=== PATIENT | female | born 1965 | race Two or more races ===

== ENCOUNTER → 2020-04-23 09:00 | Outpatient (CLI) | payer BC ==
--- NOTE | 2020-04-27 13:52 | EC ---
PATIENT:LISA YO DATE OF SERVICE: 04/23/20 SEX: F MEDICAL RECORD: [id number] DATE OF : 61 LOCATION:D[facility] AGE OF PATIENT: 54 ADMISSION DATE: 04/23/20 REFERRING PHYSICIAN: INTERPRETING PHYSICIAN: KELLEY FRIAS MD ECHOCARDIOGRAM REPORT ECHO CHARGES 4 ECHO COMPLETE Date: 04/23/20 CLINICAL DIAGNOSIS: HEART MURMUR, HX OF HTN, ANGINA, CAROTID BRUIT ECHOCARDIOGRAPHIC MEASUREMENTS (adult normal given) AC root (d.<3.7cm) 2.8 cm LV Septum d (<1.2 cm> 1.3 cm Valve Excursion 1.4 cm LV Septum (systole) 1.5 cm Left Atria (s.<4.0cm> 3.7 cm LVPW d(<1.2cm) 1.3 cm RV (d.<2.3cm) 3.2 cm LVPW (sytole) 1.9 cm LV diastole(<5.6CM) 4.3 cm MV E-F(>70mm/sec) cm LV systole 2.3 cm LVOT Diameter 1.6 cm MV exc.(>10mm) 1.2 cm Est.ejection fraction (50-75%) % DOPPLER: LVIT cm/sec A 99.0 cm/sec E 109.0 cm/sec LA cm/sec RVSP 37 mmHg LVOT 79 cm/sec AOP1/2T m/s Asc. Ao 152 cm/sec RVOT 71 cm/sec RA cm/sec PA 104 cm/sec AV Gradient Peak 5.57 mmHg AV Mean 3.61 mmHg AV Area 1.7 cm MV Gradient Peak 5.27 mmHg MV Mean 2.16 mmHg MV Area cm COMMENTS: Gauger Chief Delivery: 2 KANDI ALONZO Environmental Emergencies Assistant: 3 Dr. Fisher TAPE# PACS Pericardial Effusion N DATE OF SERVICE: Adequate 2D, color flow imaging, spectral Doppler, and M-Mode. FINDINGS: LVH is present. LV internal dimension is normal. Wall motion is normal. EF is greater than or equal to 55%. Aortic valve is tricuspid. No evidence of stenosis by Doppler interrogation. Left atrium is normal at 3.7 cm. Mitral valve shows no prolapse. Trace MR. Right side is grossly normal. Mild TR. ECHOCARDIOGRAM REPORT [id number] LISA OY TRANSINT:[id number] Voice Confirmation ID: [id number] DOCUMENT ID: [id number] KELLEY FRIAS MD at 1352 CC: [id number] DICTATION DATE: 04/26/20 1007 BANKING MANAGER: 04/26/20 1320 DEP CLI 04/23/20 [place] [id number] [place] [id number]
== END | disposition home or self-care (01) ==
LOC: D.HCCARDIO 09:00 → D.HCCECHO 10:00
PROVIDERS: ATTEND Internal Medicine Cardiovascular Disease
DX: R01.1 Cardiac murmur, unspecified (principal); I20.9 Angina pectoris, unspecified; R09.89 Other specified symptoms and signs involving the circulatory and respiratory systems

== ENCOUNTER 2020-05-04 06:45 | Day surgery (SDC) | payer BC ==
[~2020-05-04] VITALS: Ht 154.9 cm; Wt 61.8 kg
--- NOTE | ~2020-05-04 | HEMODYNAMI ---
PATIENT:LISA YO MEDICAL RECORD: [id number] : 61 LOCATION:[facility] ADMISSION DATE: 05/04/20 Generatedon:18:27 Patient name: LISA YO Patient #: [id number] SSN: [id number] : 1965 Date of study: 05/04/2020 Page: Of Hemodynamic Procedure Report Patient Data Patient Demographics Procedure consent was obtained First Name: LISA Gender: Female Last Name: SRINATH : 1965 Patient #: [id number] Age: 54 year(s) Race: Other SSN: [id number] Additional ID: [id number] Contact details Address: [facility] [address] State: [place] City: [place] Zip code: [address] Past Medical History Allergies Allergen Reaction Date Comments Reported Penicillins 05/04/2020 Admission Admission Data Admission Date: 05/04/2020 Admission Time: 6:45 Arrival Date: 05/04/2020 Arrival Time: 0:00 Admit Source: Other Insurance Payor: Private health insurance [facility] #: [id number] Height (in.): 60.63 BSA: 1.59 (m2) Height (cm.): 154 BMI: 25.72 (kg/m2) Weight (lbs.): 134.48 Weight (kg.): 61 Lab Results Lab Result Date: 05/04/2020 Lab Result Time: 0:00 CBC Name Units Result Min Max Hemoglobin g/dl 12.2 *-(----)-- 13.5 17.5 Procedure Procedure Types Cath Procedure Diagnostic Procedure LHC LHC w/Coronaries Procedure Description Procedure Date Procedure Date: 05/04/2020 Procedure Start Time: 8:15 Procedure End Time: 8:25 Procedure Staff Name Function John Chandra MD Performing Physician Terri Smith RT Monitor Jacqueline Bejarano RN Nurse Mary Valle RT Scrub Procedure Data Cath Procedure Fluoroscopy Diagnostic fluoroscopy Total fluoroscopy Time: 1.7 time: 1.7 min min Diagnostic fluoroscopy Total fluoroscopy dose: 229 dose: 229 mGy mGy Contrast Material Contrast Material Type Amount (ml) Isovue 300 34 Entry Location Entry Primary Successful Side Size Upsize Upsize Entry Closure Hinds ccessful Closure Location (Fr) 1 (Fr) 2 (Fr) Remarks Device Remarks Radial Right 6 Fr Mechanical artery Short Compression Estimated blood loss: 5 ml Diagnostic catheters Device Type Used For End Catheter Placement DIAGNOSTIC [place] 110cm 5 Procedure Fr catheter ([id number]) Procedure Complications No complications Procedure Medications Medication Administration Route Dosage Oxygen etCO2 Nasal cannula 2 l/min Zofran I.V. 4 mg Lidocaine 2% added to field 20 Heparin Flush Bag added to field 2 bags (1000units/500ml NS) 0.9% NaCl I.V. 100 ml/hr Solumedrol I.V. 125 mg Pepcid I.V. 20 mg Versed I.V. 1 mg Fentanyl I.V. 50 mcg Radial Cocktail I.A. 1 syringe (Verapamil 2mg/Nitro 400mcg/Heparin 1500units) Versed I.V. 1 mg Hemodynamics Rest BSA: 1.59 (m2) HGB: 12.2 (g/dl) O2 Consumption: Estimated: 156.65 (ml/min) O2 Co nsumption indexed: Estimated:98.52 (ml/min/m) Heart Rate: 77 (bpm) Pressure Samples Time Site Value (mmHg) Purpose Heart Use Rate(bpm) 8:18 LV 126/-14,3 Snapshot 73 8:19 AO 106/60(81) Pullback 77 8:19 LV 120/-10,9 Pullback 77 Gradients Valve Time Site 1 Site 2 Mean SEP/DFP Peak To Heart Use (mmHg) (sec/min) Peak Rate (mmHg) (bpm) Aortic 8:19 LV AO 13 19 14 77 120/-10,9 106/60(81) Calculations Valve P-P Mean Valve Index Valve Source Name Gradient Area Flow (cm2) Aortic 14 13 14 13 Snapshots Pre Cath Intra NCS Post Cath Vital Signs Time Heart Resp SPO2 etCO2 NIBP (mmHg) Rhythm Pain Sedation Rate (ipm) (%) (mmHg) Status Level (bpm) 7:58:09 72 27 100 34.1 175/90(137) NSR 0 (11) 10(A) , No pain 8:02:29 74 10 100 20 163/85(136) NSR 0 (11) 10(A) , No pain 8:06:45 74 14 99 31.8 153/83(126) NSR 0 (11) 10(A) , No pain 8:11:03 73 17 97 37.8 143/78(120) NSR 0 (11) 10(A) , No pain 8:15:21 73 12 100 37.1 138/73(112) NSR 0 (11) 9(A) , No pain 8:19:35 77 15 99 34.1 128/72(91) NSR 0 (11) 9(A) , No pain 8:23:47 74 14 99 35.6 141/72(92) NSR 0 (11) 10(A) , No pain Medications Time Medication Route Dose Verified Delivered Reason Notes Effectiveness by by 7:57:19 Oxygen etCO2 2 l/min John Buffie used for Nasal Prateek Bejarano RN procedure cannula 7:57:26 Zofran I.V. 4 mg John Buffie Per Prateek Bejarano RN physician 7:57:39 Lidocaine 2% added 20ml John John for local to vial Prateek Chandra MD anesthetic field 7:57:47 Heparin Flush added 2 bags John John used for Bag to Prateek Chandra MD procedure (1000units/500ml field NS) 7:57:55 0.9% NaCl I.V. 100 John Buffie Per ml/hr Prateek Bejarano RN physician 8:04:33 Solumedrol I.V. 125 mg John Buffie Per Prateek Bejarano RN physician 8:07:12 Pepcid I.V. 20 mg John Buffie Per Prateek Bejarano RN physician 8:13:12 Versed I.V. 1 mg John Buffie for sedation Prateek Bejarano RN 8:13:18 Fentanyl I.V. 50 mcg John Buffie for sedation Prateek Bejarano RN 8:18:18 Radial Cocktail I.A. 1 John John for (Verapamil syringe Prateek Chandra MD vasodilation 2mg/Nitro 400mcg/Heparin 1500units) 8:18:23 Versed I.V. 1 mg John Buffie for sedation Prateek Bejarano RN Procedure Log Time Note 7:41:22 Arrival Date: 05/04/2020 12:00:00 AM 7:41:41 Admit Source: Other 7:41:51 Insurance Payor : Private health insurance 7:45:24 Patient Height : 60.63 inches 7:45:27 Patient Weight : 134.48 lbs 7:45:41 Lab Result : Hemoglobin 12.2 g/dl 7:46:05 Terri Smith RT(R) sent for patient. Start room use. 7:46:09 Procedure Status Elective Heart Cath (OP). 7:46:12 Time tracking: Regular hours (M-F 7:00 - 5:00) 7:46:17 Plan of Care:Hemodynamics will remain stable., Cardiac rhythm will remain stable., Comfort level will be maintained., Respiratory function will remain adequate., Patient/ family verbilizes understanding of procedure., Procedure tolerated without complication., Recovers from procedure without complications.. 7:56:51 Patient received from Pre/Post Procedure Room to [facility] 1 Alert and oriented. Tansferred to table in Supine position. 7:56:52 Warm blankets applied, and elvin hugger turned on for patient comfort. 7:56:53 Signed procedure consent form obtained from patient. 7:56:54 Correct patient and procedure confirmed by team. 7:56:54 ECG and BP/O2 sat monitors applied to patient. 7:56:55 Vital chart was started 7:56:59 Rhythm: sinus rhythm 7:57:00 Baseline sample Acquired. 7:57:03 Full Disclosure recording started 7:57:19 Oxygen 2 l/min etCO2 Nasal cannula was administered by Jacqueline Bejarano RN; used for procedure; Verbal order read back and verified. 7:57:20 H&P Date Dictated: 04/14/2020 Within 30 days and on chart., H&P Addendum completed by physician on day of procedure. (MUST COMPLETE FOR ALL OUTPATIENTS). 7:57:22 Pre-procedure instructions explained to patient. 7:57:26 Zofran 4 mg I.V. was administered by Jacqueline Bejarano RN; Per physician; Verbal order read back and verified. 7:57:29 Pre-op teaching completed and patient verbalized understanding. 7:57:31 Family in patients room. 7:57:36 Patient NPO since Midnight. 7:57:39 Lidocaine 2% 20ml vial added to field was administered by John Chandra MD; for local anesthetic; Verbal order read back and verified. 7:57:40 Patient allergic to Penicillins 7:57:43 Is the patient allergic to Iodine/contrast media?YES- WILL GIVE SOLUMEDROL AND PEPSID. 7:57:45 Is patient on blood thinner?No 7:57:47 Heparin Flush Bag (1000units/500ml NS) 2 bags added to field was administered by John Chandra MD; used for procedure; Verbal order read back and verified. 7:57:47 Patient diabetic? No. 7:57:48 If diabetic: On Metformin? Yes 7:57:50 If on Metformin: Last Dose? 05/02/2020 7:57:55 0.9% NaCl 100 ml/hr I.V. was administered by Jacqueline Bejarano RN; Per physician; Verbal order read back and verified. 7:58:25 Patient not . Patient is over age 55. 7:58:31 Previous problem with sedation/anesthesia? Yes NAUSEA 7:58:34 Snore? Yes 7:58:53 Sleep apnea? No 7:58:55 Deviated septum? No 7:58:57 Opens mouth fully? Yes 7:58:57 Sticks out tongue? Yes 7:58:59 Airway obstruction? No ? 7:59:02 Dentures? No ? 7:59:06 Pre procedure: right dorsailis pedis pulse 1+ Palpable, but thready & weak; easily obliterated 7:59:08 Modified Benja's test Ulnar < 7 seconds 7:59:10 Patient pain scale 0/10 ?. 7:59:15 IV patent on arrival in right antecubital with 0.9% NaCl at KVO. 7:59:18 Lab results completed and on chart. 8:03:21 Stress Test: yes; normal ? 8:03:24 Right Radial & Right Groin area was prepped with chlora-prep and draped in sterile fashion 8:03:25 Alarms reviewed by R. N. 8:03:25 Sharps counted by scrub and verified by R.N. 8:04:33 Solumedrol 125 mg I.V. was administered by Jacqueline Bejarano RN; Per physician; Verbal order read back and verified. 8:04:35 Use device set Radial Dx or PCI 8:04:36 ACIST Syringe (71702) opened to sterile field. 8:04:37 Bag Decanter (2001S) opened to sterile field. 8:04:37 ACIST Hand Control (59857) opened to sterile field. 8:04:38 ACIST Manifold (55060) opened to sterile field. 8:04:38 Tegaderm 4 x 4 (1626W) opened to sterile field. 8:04:40 Medline Cath Pack ([id number]) opened to sterile field. 8:04:40 MBrace Wrist Support ([id number]) opened to sterile field. 8:04:41 NEEDLE Cook 21G 4cm Radial (G63291) opened to sterile field. 8:04:42 EMERALD Guide Wire (502-830) opened to sterile field. 8:04:42 SHEATH 6FR RAIN (3658296) opened to sterile field. 8:07:12 Pepcid 20 mg I.V. was administered by Jacqueline Bejarano RN; Per physician; Verbal order read back and verified. 8:11:26 --------ALL STOP TIME OUT------ 8:11:26 Final Timeout: patient, procedure, and site verified with staff and physician. All members of the team are in agreement. 8:11:42 Right Radial & Right Groin site verified by team. 8:11:46 Fire Safety Assessment: A--An alcohol-based skin anteseptic being used preoperatively., C--Open oxygen or nitrous oxide is being used., D--An ESU, laser, or fiber-optic light is being used. 8:11:50 Physical assessment completed. ASA score P 2 - A patient with mild systemic disease as per John Chandra MD. 8:11:53 2) 60-89 Mildly reduced kidney function, and other findings (as for stage 1) point to kidney disease. 8:11:56 Maximum allowable contrast dose (3.7 X eGFR X 0.75)194 ml. 8:11:59 Sedation plan: IV Moderate Sedation Medication:Versed, Fentanyl 8:12:08 Zero performed for pressure channel P1 8:13:12 Versed 1 mg I.V. was administered by Jacqueline Bejarano RN; for sedation; Verbal order read back and verified. 8:13:18 Fentanyl 50 mcg I.V. was administered by Jacqueline Bejarano RN; for sedation; Verbal order read back and verified. 8:14:49 Procedure started. 8:15:04 Local anesthetic to right radial artery with Lidocaine 2% by John Chandra MD.INITIAL ACCESS ONLY 8:16:32 A 6 Fr Short sheath was inserted into the Right Radial artery 8:18:01 A DIAGNOSTIC [place] 110cm 5 Fr catheter ([id number]) was advanced over the wire and used for Procedure. 8:18:18 Radial Cocktail (Verapamil 2mg/Nitro 400mcg/Heparin 1500units) 1 syringe I.A. was administered by John Chandra MD; for vasodilation; Verbal order read back and verified. 8:18:23 Versed 1 mg I.V. was administered by Jacqueline Bejarano RN; for sedation; Verbal order read back and verified. 8:18:27 LV gram done using PRATER 8:18:30 Injector settings: Ml/sec: 5, Volume: 15, 8:18:45 LV hemodynamics recorded. 8:19:10 EF : 50 % 8:20:40 LCA angiography performed. 8:21:21 RCA angiography performed. 8:21:26 Catheter removed. 8:22:18 ZEPHYR REGULAR TR BAND (233968) opened to sterile field. 8:22:22 Procedure ended.(Physican Out) 8:22:32 Sheath removed intact; hemostasis achieved with Mechanical Compression to the Right Radial artery. 8:23:13 Fluoroscopy time 01.70 minutes. 8:23:16 Fluoroscopy dose: 229 mGy 8:23:16 Flurop Dose total: 229 8:23:26 Dose Area Product 9835 mGy/cm. 8:23:33 Contrast amount:Isovue 300 34ml. 8:24:04 Maximum allowable dose exceeded? No. 8:24:05 Sharps counted by scrub and verified by R.N. 8:24:09 [place] band inflated with 10cc of air. 8:24:10 Insertion/operative site no bleeding no hematoma. 8:24:13 Post-procedure physical assessment completed. ASA score P 2 - A patient with mild systemic disease as per John Chandra MD. 8:24:15 Post procedure rhythm: sinus rhythm 8:24:18 Estimated blood loss: 5 ml 8:24:20 Post procedure instruction explained to patient.Patient verbalizes understanding. 8:24:20 Patient needs reinforcement of post procedure teaching. 8:24:24 Pt was found to be allergic to shellfish prior to procedure, Dr Chandra ordered medications to be given prior to procedure for this allergy. Pt tolerated procedure without any signs or symptoms of allergy. Will continue to monitor closely in post procedure. 8:24:55 Procedure and supply charges have been captured, reviewed, submitted and are correct. 8:24:57 Procedure Complication : No complications 8:24:59 Vital chart was stopped 8:25:01 [facility] Findings: mild to moderate CAD (<70%) 8:25:02 Operative report dictated upon procedure completion. 8:25:02 See physician's report for complete and final results. 8:25:03 Report given to Pre/Post Procedure Room. 8:25:05 Patient transfered to Pre/Post Procedure Room with Bed. 8:25:08 Procedure ended. 8:25:08 Full Disclosure recording stopped 8:25:11 End room use (Document Last) 8:27:04 End room use (Document Last) 8:27:18 End room use (Document Last) Device Usage Item Name Manufacture Quantity Catalog Hospital Part Current Minima l Lot# / Number Charge Number Stock Stock Serial# Code ACIST Acist 1 25490 [id number] 346500 760976 20 Syringe Medical (62865) Systems Inc Bag Microtek 1 001525 55494 452252 5 Decanter Medical Inc. () ACIST Hand Acist 1 78108 748553 100956 442894 5 Control Medical (55260) Systems Inc ACIST Acist 1 09407 035985 650153 064673 5 Manifold Medical (36307) Systems Inc Tegaderm 4 3M 1 1626W 406504 662808 625305 5 x 4 (1626W) Medline Medline 1 [id number] 118441 23369 461603 5 Cath Pack ([id number]) MBrace Advanced 1 140-0250-00 583549 31102 188758 5 Wrist Vascular Support Dynamics ([id number]) NEEDLE [employer]canbesponsored Medical 1 A60488 249963 818730 477727 5 21G 4cm Radial (K45793) EMERALD Cardinal 1 752-654 937826 410568 145306 5 Guide Wire [facility] (881-863) SHEATH 6FR Cardinal 1 5687480 951076 5551709 615166 5 [facility] (9259028) DIAGNOSTIC Terumo 1 37-7278 441740 108280 255969 5 [place] 110cm 5 Fr catheter (094863) ZEPHYR Cardinal 1 340202 066142 7318477 729135 5 REGULAR [facility] BAND (837276) Signature Audit [place] Stage Time Signature Unsigned Intra-Procedure 05/04/2020 Terri Smith 8:27:04 AM RT(R) Intra-Procedure 05/04/2020 Jacqueline Bejarano RN 8:27:18 AM Intra-Procedure 05/04/2020 John Chandra MD 8:27:35 AM [facility] [address] [facility] [place] [address]
[2020-05-04] MEDS ORDERED: HYDROCHLOROTH12.5 M1 PO (07:09)
[2020-05-04] MEDS ORDERED: NORVASC5 MG PO (07:10)
[2020-05-04] MEDS ORDERED: GLIPIZIDE10 MG PO (07:10)
[2020-05-04] MEDS ORDERED: GLUCOPHAGE1000 MG PO (07:10)
[2020-05-04] MEDS ORDERED: COZAAR100 MG PO (07:10)
[2020-05-04] MEDS ORDERED: CRESTOR20 MG PO (07:12)
[2020-05-04] MEDS ORDERED: COREG12.5 MG PO (07:14)
[2020-05-04 07:28] VITALS: BP 165/78; Ht 154.9 cm; Wt 61.8 kg
[2020-05-04 07:38] LABS: BASOPHILS 0.6 % (0-2); EOSINOPHILS 2.5 % (0-7); HEMATOCRIT 36.4 % (36.0-48.0); HEMOGLOBIN 12.2 g/dL (12-16); IMMATURE GRANULOCYTES 0.3 % (0-5); LYMPHOCYTES 21.8 % (15-50); MCH 31.1 pg (26.0-34.0); MCHC 33.5 g/dL (31.0-37.0); MCV 92.9 fL (80.0-100.0); MEAN PLATELET VOLUME 9.5 fL (7.4-10.4); NEUTROPHIL ABS# 4.52 10x3/uL (1.56-6.13); NEUTROPHILS 65.8 % (40-80); PLATELET COUNT 300 10x3/uL (130-400); RBC 3.92 10x6/uL (4.00-5.40); RDW 12.1 % (11.5-14.5); WBC 6.9 10x3/uL (4.8-10.8)
--- NOTE | 2020-05-04 07:45 | NUR ---
PREOP ADMISSION COMPLETED. CONSENTS WERE VERIFIED THROUGH LANGUAGE LINE WITH KEON # [id number].
[2020-05-04 07:51] LABS: ANION GAP 12.6 mmol/L (8-16); CALCIUM 8.7 mg/dL (8.5-10.1); CARBON DIOXIDE 26.1 mmol/L (21.0-32.0); CHOL - HDL RATIO 1.8 ratio (2.3-4.1); CREATININE - SERUM 0.9 mg/dL (0.6-1.3); LDL-HDL RATIO 0.5 ratio (1.5-3.5); POTASSIUM - SERUM 3.7 mmol/L (3.5-5.1)
--- NOTE | 2020-05-04 08:37 | NUR ---
PT ARRIVED BY STRETCHER. PLACED ON MONITORS. ASSESSMENT COMPLETED. VSS AT THIS TIME. CALL LIGHT WITHIN REACH. DAUGHTER AT BEDSIDE.
--- NOTE | 2020-05-04 08:52 | NUR ---
PT RESTING COMFORTABLY. VSS. RIGHT WRIST Z BAND IN PLACE. NO BLEEDING/HEMATOMA NOTED. CALL LIGHT WITHIN REACH. DAUGHTER AT BEDSIDE.
--- NOTE | 2020-05-04 09:10 | NUR ---
RIGHT WRIST Z BAND IN PLACE. NO BLEEDING/HEMATOMA NOTED. PT RESTING COMFORTABLY. VSS. DENIES ANY NAUSEA/PAIN. DAUGHTER AT BEDSIDE. CALL LIGHT WITHIN REACH.
--- NOTE | 2020-05-04 09:30 | NUR ---
2cc OF AIR REMOVED FROM Z BAND. NO BLEEDING/HEMATOMA NOTED. TOLERATED WELL. PT RESTING COMFORTABLY. VSS.
--- NOTE | 2020-05-04 09:45 | NUR ---
3cc OF AIR REMOVED FROM Z BAND. NO BLEEDING/HEMATAMA NOTED. CALL LIGHT WITHIN REACH. VSS AT THIS TIME. PT RESTING COMFORTABLY. NO NEEDS. DENIES NAUSEA/PAIN.
--- NOTE | 2020-05-04 10:00 | NUR ---
3cc OF AIR REMOVED FROM Z BAND. NO BLEEDING/HEMATOMA NOTED. TOLERATING WELL. VSS. DENIES ANY NEEDS.
--- NOTE | 2020-05-04 10:15 | NUR ---
REMAINDER OF AIR REMOVED FROM Z BAND. NO BLEEDING/HEMATOMA NOTED. DRESSING APPLIED. TOLERATED WELL. DR. DUNBAR ROUNDED AND SPOKE WITH PT AND PT'S DAUGHTER.
--- NOTE | 2020-05-04 10:45 | NUR ---
PIV D/C'D WITH CATH TIP INTACT. TOLERATED WELL. RIGHT WRIST DRESSING C/D/I. NO S/S OF HEMATOMA NOTED. RIGHT WRIST BRACE IN PLACE. PT DRESSED AND AMBULATED TO RESTROOM. VOIDED WITHOUT DIFFICULTY. STEADY GAIT NOTED.
--- NOTE | 2020-05-04 10:55 | NUR ---
DISCUSSED DISCHARGE INSTRUCTIONS WITH PT AND PT'S DAUGHTER. THEY VOICED UNDERSTANDING. ALL QUESTIONS ADDRESSED. RIGHT WRIST DRESSING C/D/I. NO S/S OF HEMATOMA NOTED.
--- NOTE | 2020-05-04 11:00 | NUR ---
PT TAKEN OUT TO VEHICLE BY WHEELCHAIR. NO S/S OF DISTRESS NOTED. ALL BELONGINGS AND PAPERWORK IN HAND.
== END 2020-05-04 11:00 | disposition home or self-care (01) ==
LOC: D.CATH 06:45
PROVIDERS: ATTEND Internal Medicine Cardiovascular Disease
DX: I20.0 Unstable angina (principal); I42.9 Cardiomyopathy, unspecified; I10 Essential (primary) hypertension; E78.5 Hyperlipidemia, unspecified; R01.1 Cardiac murmur, unspecified; E11.9 Type 2 diabetes mellitus without complications; R09.89 Other specified symptoms and signs involving the circulatory and respiratory systems